=== PATIENT | female | born 1930 | race Caucasian/White ===

== ENCOUNTER 2016-10-26 01:30 | Observation (INO) | payer OTHER, MEDICARE ==
[~2016-10-26] VITALS: Ht 152.4 cm; Wt 82.1 kg
[~2016-10-26 01:30] MED LIST: CAPT25T PO; CHLORTHALIDONE25 MG PO; METOPROLOL SUCC50 MG PO; SIMVASTATIN40 MG PO
[2016-10-26 02:50] LABS: EOSINOPHIL (%) 2.1 % (0-5); EOSINOPHIL COUNT 0.1 K/uL (0-0.3); HEMATOCRIT 32.5 % (36.0-46.0); IMMATURE GRANULOCYTE (%) 0.4 % (0.0-0.7); INSTRUMENT ABS NEUTROPHIL CT 2.6 K/uL; LYMPHOCYTE COUNT 1.5 K/uL (1.0-2.8); MCH 32.5 PG (29.0-34.0); MCHC 34.5 G/DL (30.0-36.0); MCV 94.2 FL (83-99); MEAN PLAT.VOLUME 10.3 uM^3 (9.5-12.4); NEUTROPHIL (%) 49.9 % (45-76); NEUTROPHIL COUNT 2.6 K/uL (1.8-6.4); PLATELET COUNT 174 K/uL (156-360); RBC DIS.WIDTH-CV 12.3 % (11.8-14.6); RBC DIS.WIDTH-SD 42.5 % (39-53); RED BLOOD COUNT 3.45 M/uL (3.80-5.20); WHITE BLOOD COUNT 5.3 K/uL (4.1-10.2)
[2016-10-26 03:02] LABS: INTER. NORMALIZED RATIO 1.1; PTT 27.5 (25-32)
[2016-10-26 03:03] LABS: CHLORIDE 92 mEq/L (99-109); POTASSIUM 3.5 mEq/L (3.7-5.4); SODIUM 126 mEq/L (136-147)
[2016-10-26 03:04] LABS: GLUCOSE 95 mg/dL (70-99)
[2016-10-26 03:06] LABS: ANION GAP 11 MEQ/L (2-14)
[2016-10-26 03:08] LABS: GFR ESTIMATE (CALCULATED) 56 mL/min/
[2016-10-26 03:09] LABS: UREA NITROGEN (BUN) 19 mg/dL (9-23)
[2016-10-26 03:13] LABS: TROP-I INTERPRETATION NEGATIVE; TROPONIN-I 0.01 ng/mL (0.0-0.30)
[2016-10-26] MEDS ORDERED: B-1100 MG PO (05:18)
[2016-10-26] MEDS ORDERED: ASPIR 8181 M1 PO (05:19)
[2016-10-26] MEDS ORDERED: CYANOCOBALAM1000 MCG PO (05:19)
[2016-10-26] MEDS ORDERED: ALENDRONATE SOD70 MG PO (05:21)
[2016-10-26] MEDS ORDERED: PRESERVISION T1 EACH PO (05:21)
[2016-10-26] MEDS ORDERED: FISH OIL 1,001000 M2 PO (05:21)
[2016-10-26] MEDS ORDERED: CALCIUM 600 MG1 EACH PO (05:22)
[2016-10-26 08:38] VITALS: BP 146/63
[2016-10-26] MEDS ORDERED: SUPER CALCIUM600 MG PO (10:14)
[2016-10-26] MEDS ORDERED: VITAMIN D31000 UNIT PO (10:14)
[2016-10-26] MEDS ORDERED: CAPOTEN50 MG PO (10:15)
[2016-10-26] MEDS ORDERED: PRESERVISIO1 CAPSULE PO (10:17)
[2016-10-26 11:49] LABS: ADD MIUA? NO; BILIRUBIN NEGATIVE; BLOOD NEGATIVE; COLOR YELLOW ((YELLOW)); GLUCOSE (STRIP) NEGATIVE; KETONES 5; LEUKOCYTES NEGATIVE; NITRITE NEGATIVE; PROTEIN (STRIP) NEGATIVE; SPECIFIC GRAVITY 1.005 (1.000-1.030); UROBILINOGEN 0.2 MG/DL (0.2-1.0)
[2016-10-26 12:25] VITALS: BP 151/78
[2016-10-26 13:13] LABS: ANION GAP 12 MEQ/L (2-14); CHLORIDE 91 MEQ/L (99-109); GFR ESTIMATE (CALCULATED) 56 mL/min/; GLUCOSE 97 mg/dL (70-99); POTASSIUM 3.7 MEQ/L (3.7-5.4); SAMPLE HEMOLYSIS CHECK 0; SAMPLE ICTERIC CHECK 0; SAMPLE LIPEMIA CHECK 0; SODIUM 129 MEQ/L (136-147); UREA NITROGEN (BUN) 19 mg/dL (9-23)
[2016-10-26 13:17] LABS: MCH 32.3 PG (29.0-34.0); MCHC 33.8 G/DL (30.0-36.0); MCV 95.8 FL (83-99); MEAN PLAT.VOLUME 11.1 uM^3 (9.5-12.4); PLATELET COUNT 177 K/uL (156-360); RBC DIS.WIDTH-CV 12.7 % (11.8-14.6); RBC DIS.WIDTH-SD 43.8 % (39-53); RED BLOOD COUNT 3.34 M/uL (3.80-5.20); WHITE BLOOD COUNT 6.1 K/uL (4.1-10.2)
[2016-10-26 14:37] LABS: HEMATOCRIT 32.1 % (36.0-46.0); MCH 32.2 PG (29.0-34.0); MEAN PLAT.VOLUME 10.5 uM^3 (9.5-12.4); PLATELET COUNT 171 K/uL (156-360); RBC DIS.WIDTH-CV 12.5 % (11.8-14.6); RBC DIS.WIDTH-SD 43.8 % (39-53); RED BLOOD COUNT 3.38 M/uL (3.80-5.20); WHITE BLOOD COUNT 5.7 K/uL (4.1-10.2)
[2016-10-26 14:52] LABS: ANION GAP 9 MEQ/L (2-14); CHLORIDE 94 MEQ/L (99-109); POTASSIUM 3.7 MEQ/L (3.7-5.4); SAMPLE HEMOLYSIS CHECK 0; SAMPLE ICTERIC CHECK 0; SAMPLE LIPEMIA CHECK 0; SODIUM 128 MEQ/L (136-147)
[2016-10-26 14:57] LABS: GFR ESTIMATE (CALCULATED) > 59 mL/min/; UREA NITROGEN (BUN) 19 mg/dL (9-23)
[2016-10-26 15:13] LABS: GLUCOSE 148 mg/dL (70-99)
[2016-10-26 19:30] VITALS: BP 131/60
[2016-10-27] VITALS: BP 128/69
[2016-10-27 04:14] VITALS: BP 140/64
[2016-10-27 07:36] VITALS: BP 169/72
[2016-10-27 09:15] LABS: HEMATOCRIT 32.4 % (36.0-46.0); MCV 97.3 FL (83-99); MEAN PLAT.VOLUME 10.7 uM^3 (9.5-12.4); PLATELET COUNT 175 K/uL (156-360); RBC DIS.WIDTH-CV 12.9 % (11.8-14.6); RBC DIS.WIDTH-SD 45.7 % (39-53); RED BLOOD COUNT 3.33 M/uL (3.80-5.20)
[2016-10-27 09:37] LABS: ANION GAP 8 MEQ/L (2-14); CHLORIDE 95 MEQ/L (99-109); POTASSIUM 3.9 MEQ/L (3.7-5.4); SAMPLE HEMOLYSIS CHECK 0; SAMPLE ICTERIC CHECK 0; SAMPLE LIPEMIA CHECK 0; SODIUM 129 MEQ/L (136-147)
[2016-10-27 09:49] LABS: GFR ESTIMATE (CALCULATED) > 59 mL/min/; GLUCOSE 98 mg/dL (70-99); UREA NITROGEN (BUN) 15 mg/dL (9-23)
[2016-10-27 10:51] VITALS: BP 126/60
[2016-10-27] MEDS ORDERED: AMLODIPINE BESYL5 MG PO (11:50)
[2016-10-27] MEDS ORDERED: FOLIC ACID1 MG PO (11:50)
== END 2016-10-27 13:44 | disposition home health service (06) ==
LOC: EME → EDBD 01:30 → EME 01:30 → 5WEST 05:28 → EDOF 05:28 → 5WEST 08:10
PROVIDERS: Emergency Medicine; Family Medicine; Hospitalist
PROC: 0HQ0XZZ Repair Scalp Skin, External Approach (ICD-10-PCS; principal; 2016-10-26)
DX: E87.1 Hypo-osmolality and hyponatremia (principal); E87.6 Hypokalemia; F10.129 Alcohol abuse with intoxication, unspecified; S01.01XA Laceration without foreign body of scalp, initial encounter; W19.XXXA Unspecified fall, initial encounter; Y92.009 Unspecified place in unspecified non-institutional (private) residence as the place of occurrence of the external cause; I10 Essential (primary) hypertension; E78.5 Hyperlipidemia, unspecified
CPT/HCPCS: 70450; 71010; 80048; 80048 91; 81003; 83930; 83935; 84300; 84484; 85025; 85027; 85610; 85730; 93005; 99281; 99285; G0378; G8978 GP CI; G8979 GP CH; G8987 GO CI; G8988 GO CH; J3480; J7030

== ENCOUNTER 2017-12-23 14:00 | Emergency (ER) | payer OTHER, MEDICARE ==
[~2017-12-23 14:00] MED LIST changes: +ALENDRONATE SOD70 MG PO; +AMLODIPINE BESYL5 MG PO; +ASPIR 8181 M1 PO; +B-1100 MG PO; +CALCIUM 600 MG1 EACH PO; +CAPOTEN50 MG PO; +CYANOCOBALAM1000 MCG PO; +FISH OIL 1,001000 M2 PO; +FOLIC ACID1 MG PO; +PRESERVISIO1 CAPSULE PO; +PRESERVISION T1 EACH PO; +SUPER CALCIUM600 MG PO; +VITAMIN D31000 UNIT PO
[2017-12-23 14:13] LABS: BASOPHIL (%) 0.7 % (0-1); BASOPHIL COUNT 0.1 K/uL (0-0.1); EOSINOPHIL (%) 3.1 % (0-5); EOSINOPHIL COUNT 0.2 K/uL (0-0.3); HEMATOCRIT 33.4 % (36.0-46.0); HEMOGLOBIN 11.4 G/DL (11.9-15.5); IMMATURE GRANULOCYTE (%) 0.4 % (0.0-0.7); LYMPHOCYTE (%) 48.9 % (15-42); LYMPHOCYTE COUNT 3.3 K/uL (1.0-2.8); MCH 33.4 PG (29.0-34.0); MCHC 34.1 G/DL (30.0-36.0); MCV 97.9 FL (83-99); MONOCYTE (%) 6.3 % (3-12); MONOCYTE COUNT 0.4 K/uL (0-0.8); NEUTROPHIL (%) 40.6 % (45-76); NEUTROPHIL COUNT 2.7 K/uL (1.8-6.4); PLATELET COUNT 196 K/uL (156-360); RBC DIS.WIDTH-CV 12.4 % (11.8-14.6); RBC DIS.WIDTH-SD 44.7 % (39-53); RED BLOOD COUNT 3.41 M/uL (3.80-5.20); WHITE BLOOD COUNT 6.7 K/uL (4.1-10.2)
[2017-12-23 14:23] LABS: AMYLASE 81 IU/L (1-118); CHLORIDE 98 mEq/L (99-109); POTASSIUM 3.8 mEq/L (3.7-5.4); SODIUM 135 mEq/L (136-147)
[2017-12-23 14:25] LABS: GLUCOSE 87 mg/dL (70-99)
[2017-12-23 14:28] LABS: SERUM ETHYL ALCOHOL 250 mg/dL
[2017-12-23 14:29] LABS: CREATININE 1.1 mg/dL (0.6-1.3); GFR ESTIMATE (CALCULATED) 50 mL/min/; UREA NITROGEN (BUN) 20 mg/dL (9-23)
[2017-12-23 14:32] LABS: LIPASE 57 U/L (1.0-51.0)
[2017-12-23 14:34] LABS: TROP-I INTERPRETATION NEGATIVE; TROPONIN-I 0.01 ng/mL (0.0-0.30)
[2017-12-23 16:45] LABS: APPEARANCE CLEAR ((CLEAR)); BILIRUBIN NEGATIVE; BLOOD MODERATE; COLOR STRAW ((YELLOW)); GLUCOSE (STRIP) NEGATIVE; KETONES NEGATIVE; LEUKOCYTES NEGATIVE; NITRITE NEGATIVE; PROTEIN (STRIP) NEGATIVE; SPECIFIC GRAVITY 1.008 (1.000-1.030); UROBILINOGEN 0.2 MG/DL (0.2-1.0)
[2017-12-23 16:49] LABS: BACTERIA RARE /HPF; EPITHELIAL CELLS RARE /HPF; MUCUS NONE SEEN /LPF; RED BLOOD CELLS 0-5 /HPF (0-5); UCUL ADDED? NO; WHITE BLOOD CELLS 0-5 /HPF (0-5)
[2017-12-23 16:53] LABS: COCAINE NEGATIVE (150 ng/mL); METHAMPHETAMINE NEGATIVE (500 ng/mL); PHENCYCLIDINE NEGATIVE (25 ng/mL); THC CANNABINOIDS NEGATIVE (50 ng/mL)
[2017-12-23 16:54] LABS: AMPHETAMINE NEGATIVE (500 ng/mL); BARBITURATES NEGATIVE (200 ng/mL); BENZODIAZEPINES NEGATIVE (150 ng/mL); BUPRENORPHINE NEGATIVE (10 ng/mL); METHADONE NEGATIVE (200 ng/mL); OPIATES (MORPHINE) NEGATIVE (100 ng/mL); OXYCODONE NEGATIVE (100 ng/mL); PROPOXYPHENE NEGATIVE (300 ng/mL); TRICYCLIC ANTIDEPRESSANTS NEGATIVE (300 ng/mL)
== END 2017-12-23 19:00 | disposition home or self-care (01) ==
LOC: TRA 14:00
PROVIDERS: Emergency Medicine
DX: S09.90XA Unspecified injury of head, initial encounter (principal); S01.01XA Laceration without foreign body of scalp, initial encounter; S60.222A Contusion of left hand, initial encounter; F10.129 Alcohol abuse with intoxication, unspecified; W18.30XA Fall on same level, unspecified, initial encounter; Z23 Encounter for immunization; I44.7 Left bundle-branch block, unspecified; Z79.82 Long term (current) use of aspirin; Z96.642 Presence of left artificial hip joint; Y90.8 Blood alcohol level of 240 mg/100 ml or more
CPT/HCPCS: 70450; 71045; 72125; 72170; 80048; 81003; 82150; 83690; 84484; 85025; 86850; 86900; 86901; 93005; 99281; 99285; G0480